=== PATIENT | female | born 2000 | race Caucasian/White ===

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

== ENCOUNTER → 2023-02-28 09:16 | Outpatient (CLI) | payer OTHER, SELFPAY ==
[2023-02-28 11:49] LABS: Hematocrit 37.9 % (36-46); Hemoglobin 12.7 g/dL (12.0-16.0); Mean Corpuscular HGB Conc 33.6 % (30-36); Mean Corpuscular Volume 83.5 fL (80-100); Platelet Count 271 X10^3/uL (150-400); Red Blood Cell Count 4.54 X10^6/uL (4.0-5.2); Red Cell Distribution Width 14.7 % (11.6-14.8); White Blood Cell Count 9.1 X10^3/uL (4.5-11.0)
[2023-02-28 12:39] LABS: Free T4, Direct Thyroxine 0.99 ng/dL (0.78-2.19)
[2023-02-28 12:40] LABS: Alanine Aminotransferase 15 IU/L (<35); Albumin 4.3 g/dL (3.5-5.0); Albumin Globulin Ratio 1.5 (1.0-2.8); Alkaline Phosphatase 59 U/L (38-126); Aspartate Aminotransferase 24 IU/L (14-36); BUN Creatinine Ratio 25.4 (6-22); Bilirubin Total 0.4 mg/dL (0.2-1.3); Blood Urea Nitrogen 18 mg/dL (7-17); Calcium 9.4 mg/dL (8.4-10.2); Carbon Dioxide 28 mmol/L (22-32); Chloride 102 mmol/L (98-107); Cholesterol 196 mg/dL (140-199); Estimated Glomerular Filt Rate > 60 mL/min (>60); Globulin 2.9 g/dL (1.7-4.1); Glucose 79 mg/dL (70-100); HDL Cholesterol 69 mg/dL (40-60); HEMOLYSIS < 15 (0-50); LDL Cholesterol Calculated 115 mg/dL (<100); Potassium 4.4 mmol/L (3.4-5.1); Sodium 137 mmol/L (137-145); Total Protein 7.2 g/dL (6.3-8.2); Triglycerides 60 mg/dL (35-150)
[2023-02-28 12:41] LABS: HCG Quantitative /Beta subunit < 2.4 mIU/mL; Prolactin 13.7 ng/mL (3.0-18.6)
[2023-02-28 12:52] LABS: Thyroid Stimulating Hormone 2.43 uIU/mL (0.47-4.68)
[2023-02-28 12:58] LABS: Testosterone 33.3 ng/dL (5.71-77.0)
[2023-02-28 15:36] LABS: Follicle Stimulating Hormone 5.58 mIU/mL
[2023-02-28 15:37] LABS: Vitamin D 25 Hydroxy (D3) 37.7 ng/mL (30.0-100.0)
== END ==
PROVIDERS: PCP Registered Nurse Diabetes Educator; Referring Provider Registered Nurse Diabetes Educator; Visit Provider Registered Nurse Diabetes Educator
DX: L68.0 Hirsutism (principal); N91.5 Oligomenorrhea, unspecified; Z00.00 Encounter for general adult medical examination without abnormal findings; R45.89 Other symptoms and signs involving emotional state
CPT/HCPCS: 36415; 80053; 80061; 82306; 83001; 83498; 84146; 84403; 84439; 84443; 84702; 85027

== ENCOUNTER → 2023-04-05 06:56 | Outpatient (CLI) | payer OTHER, SELFPAY ==
--- NOTE | 2023-04-05 06:57 | DI.US.S_ITS ---
PROCEDURE: US PELVIC COMPLETE INDICATIONS: HIRSUTISM LONG MENSTRUAL CYCLES ? PCOS TECHNIQUE: Real-time scanning was performed of the pelvic organs, with image documentation. Additional endovaginal scanning was necessary due to incomplete visualization of the adnexal and endometrial structures by transabdominal scanning. COMPARISON: None. FINDINGS: Uterus: Uterus is anteverted and normal in size at 6.5 x 3.3 x 4.4 cm. The myometrium is homogeneous. The endometrium measures 7.7 mm combined thickness. Ovaries: The right ovary measures 2.9 x 1.6 x 1.8 cm, with a calculated ovarian volume of 4.6 cc. The left ovary measures 3.0 x 1.8 x 2.6 cm, with a calculated ovarian volume of 7.3 cc. The ovaries have a normal sonographic appearance. Greater than 12 follicles can be seen in each ovary. No adnexal masses are seen. Other: No pathologic free abdominal or pelvic fluid. Trace pelvic free fluid, likely physiologic. IMPRESSION: Greater than 12 follicles can be seen in each ovary which can be seen in the setting of polycystic ovarian syndrome, clinical correlation is recommended. We strive to produce accurate, complete, and clear reports of imaging services. To assist us in improving patient care, this report was composed using standard report templates and voice recognition software. Therefore, it may contain abnormal punctuation, insertions and/or omissions. Occasional wrong-word or sound-alike substitutions may occur. Though we review the report and make efforts to correct it, we do recommend that the report be read carefully in proper context to recognize any text inaccuracies. Dictated by: Michael Bravo M.D. on 04/05/2023 at 9:02 Approved by: Michael Bravo M.D. on 04/05/2023 at 9:04
--- NOTE | 2023-04-05 06:57 | DI.ECHO.S_ITS ---
[facility]---------+ [facility] +---------+ : : [address] : [place] : : : : [id number] : : : : Phone: [phone]---------+ Echocardiogram Report + + :Name: ROGER LANGLEY Study Date: 04/05/2023 Height: 70 in : :[facility] ReadingLocation: Weight: 200 lb : : Gender: Female BSA: 2.1 m2 : :: 2000 Age: 22 yrs BP: 120/73 mmHg: :Reason For Study: Pre-Syncope, Evaluate for PCOS : :Ordering Physician: BREANNA, : :ROGER Performed By: Mirian Haq : :Referring: ROGER CARLOS : + + Interpretation Summary The ejection fraction is estimated to be 50-55%. In the parasternal views there appears to be an echo lucency in the proximal aorta. This is likely artifactual however supravalvular aortic stenosis cannot be ruled out. There is no significant valvular heart disease. Procedure: A two-dimensional transthoracic echocardiogram with color flow and Doppler was performed. The study quality was technically adequate. There is no prior echocardiogram noted for this patient. The patient was in a bradycardic rhythm during the exam. Left Ventricle: The left ventricle is normal in size. The ejection fraction is estimated to be 50-55%. Left ventricular wall motion is normal. Diastolic parameters suggest probable normal left ventricular diastolic function and normal filling pressures. Right Ventricle: The right ventricle is normal in size and function. Atria: The left atrial size is normal. Right atrial size is normal. There is no Doppler evidence for an interatrial shunt. Mitral Valve: The mitral valve leaflets appear mildly thickened, but open well. There is no mitral valve stenosis. There is trace mitral regurgitation. Aortic Valve: The aortic valve is trileaflet. The aortic valve opens well. There is no aortic valve stenosis. No aortic regurgitation is present. Tricuspid Valve: The tricuspid valve is normal. There is no tricuspid stenosis. There is trace tricuspid regurgitation. The right ventricular systolic pressure is estimated to be at least 23 mmHg based on an estimated right atrial pressure of 3 mm Hg. Pulmonic Valve: The pulmonic valve leaflets are thin and pliable; valve motion is normal. There is no pulmonic valvular stenosis. There is mild pulmonic regurgitation. Great Vessels: The aortic root is normal size. The ascending aorta is normal in size. The pulmonary artery is normal size. The IVC is of normal diameter and collapses greater than 50% with a sniff. This suggests a low right atrial pressure of 3 mm Hg. Pericardium/ Pleura There is no pericardial effusion. There is no pleural effusion. MMode/2D Measurements & Calculations LVIDd: 5.4 cm LVOT diam: 2.0 cm LVIDs: 3.4 cm Ao root diam: 2.7 cm FS: 37.0 % asc Aorta Diam: 2.6 cm IVSd: 0.80 cm LVPWd: 0.80 cm LV jimenez. diameter/BSA (cm/m^2): 2.6 LV sys. diameter/BSA (cm/m^2): 1.6 LA A2 area: 17.3 cm2 RA long axis: 5.0 cm LA A4 area: 16.1 cm2 RA area: 12.4 cm2 LA length (vol): 5.2 cm RA vol: 26.3 ml LA vol: 45.9 ml RA : 12.6 ml/m2 LA vol index: 22.0 ml/m2 RVD1 (basal): 3.7 cm LVLs ap4: 6.1 cm LVLd ap2: 8.5 cm TAPSE_phl: 2.4 cm LVLs ap2: 6.9 cm Doppler Measurements & Calculations Ao V2 max: 142.0 cm/sec LVOT Max Westley: 115.5 cm/sec Ao V2 mean: 90.2 cm/sec LV V1 max P.3 mmHg Ao max P.0 mmHg LV V1 VTI: 26.1 cm Ao mean P.0 mmHg UCHE(I,D): 2.1 cm2 Ao V2 VTI: 38.9 cm UCHE(V,D): 2.6 cm2 sev ratio: 0.67 UCHE indexed to BSA (cm^2/m^2): 1.0 MV E max westley: 88.9 cm/sec TR max westley: 222.0 cm/sec MV A max westley: 55.7 cm/sec TR max P.7 mmHg MV E/A: 1.6 PA V2 max: 112.0 cm/sec Med Peak E' Westley: 9.6 cm/sec PA V2 mean: 73.6 cm/sec E/E' med: 9.2 PA mean P.0 mmHg Lat Peak E' Westley: 18.2 cm/sec PA pr(Accel): 23.2 mmHg E/E' lat: 4.9 E/e' average: 7.1 MV dec time: 0.22 sec SV(LVOT): 82.0 ml AV VR_phl: 0.82 UCHE(VTI)/BSA_phl: 1.0 Reading Physician:02:10 PM
== END ==
PROVIDERS: PCP Registered Nurse Diabetes Educator; Referring Provider Registered Nurse Diabetes Educator; Visit Provider Registered Nurse Diabetes Educator
DX: I37.1 Nonrheumatic pulmonary valve insufficiency (principal); R55 Syncope and collapse; R06.09 Other forms of dyspnea; N91.5 Oligomenorrhea, unspecified; L68.0 Hirsutism
CPT/HCPCS: 76830; 76856; 93306; 93975

== ENCOUNTER → 2023-06-06 12:25 | Outpatient (CLI) | payer OTHER, SELFPAY ==
--- NOTE | 2023-06-06 12:27 | DI.RAD.S_ITS ---
PROCEDURE: XR SHOULDER RT MIN 2V INDICATIONS: chronic right shoulder pain TECHNIQUE: 3 views of the shoulder were acquired. COMPARISON: None. FINDINGS: Bones: No fractures or dislocations. No suspicious bony lesions. Visualized ribs appear intact. Soft tissues: No suspicious soft tissue calcifications. IMPRESSION: No fracture. No osseous lesion. If symptoms and/or clinical suspicion for pathology persists, further assessment with repeat radiographs (7-10 days) or advanced imaging (e.g. CT, MRI or bone scan) should be considered. Dictated by: Barbara Alberto MD, PhD on 06/06/2023 at 13:37 Approved by: Barbara Alberto MD, PhD on 06/06/2023 at 13:37
== END ==
PROVIDERS: PCP Registered Nurse Diabetes Educator; Referring Provider Registered Nurse Diabetes Educator; Visit Provider Registered Nurse Diabetes Educator
DX: M25.511 Pain in right shoulder (principal); G89.29 Other chronic pain; M75.21 Bicipital tendinitis, right shoulder
CPT/HCPCS: 73030

== ENCOUNTER → 2024-02-03 13:20 | Outpatient (CLI) | payer OTHER, SELFPAY ==
--- NOTE | 2024-02-03 13:21 | DI.RAD.S_ITS ---
PROCEDURE: FL SHOULDER INJECTION MR/CT RT INDICATIONS: RIGHT SHOULDER PAIN COMPARISON: [facility], MR, MR SHOULDER RT W CON, 02/03/2024, 14:05. TECHNIQUE: The indications, alternatives, benefits, risks, and complications of the procedure were explained to the patient. Written informed consent was obtained and placed in the chart. The shoulder was examined fluoroscopically and a site for needle placement chosen for entry into the glenohumeral joint from an anterior approach. The skin was prepped and draped in a sterile fashion, and 1% lidocaine infiltrated from skin down to joint capsule. A spinal needle was inserted into the glenohumeral joint, and a small amount of iodinated contrast media injected to confirm intra-articular placement of the needle tip. This was followed by approximately 12 mL dilute solution of a gadolinium containing MR contrast agent. The needle was removed and a dressing was applied. The patient was given postprocedural instructions and sent to the MR suite for MR imaging. FINDINGS: A single fluoroscopic spot image demonstrates intra-articular location of injected iodinated contrast. IMPRESSION: Successful fluoroscopically guided administration of dilute Gadolinium solution into the shoulder joint for MR arthrogram. Dictated by: Cielo Newberry M.D. on 02/03/2024 at 17:05 Approved by: Cielo Newberry M.D. on 02/03/2024 at 17:05
[2024-02-03] MEDS: SODIUM CHLORIDE 0.9 % 20 ML VIAL IV (14:28)
[2024-02-03] MEDS: LIDOCAINE 1% 20 ML INJ (14:28)
--- NOTE | 2024-02-03 14:30 | DI.MRI.S_ITS ---
PROCEDURE: MR SHOULDER RT W CON INDICATIONS: RIGHT SHOULDER PAIN TECHNIQUE: After the administration of 12 mL of dilute intra-articular Gadolinium contrast, oblique coronal T1 and T2 spin echo with fat saturation, oblique sagittal T1 spin echo with and without fat saturation, oblique sagittal T2 fast spin echo with fat saturation, axial T1 spin echo with fat saturation through the shoulder. COMPARISON: None. FINDINGS: Image quality: Excellent. Rotator cuff: Low-grade bursal surface partial-thickness tear involving distal supraspinatus at its insertion on the humeral head is seen extending to musculotendinous junction. Distal infraspinatus and subscapularis tendinosis is seen. No full-thickness rotator cuff tendon rupture. No rotator cuff muscle atrophy on sagittal images. Bones and bursae: No bone marrow contusions or fractures. No acromioclavicular joint degeneration. The acromion demonstrates conventional anatomy, without an os acromiale. Capsule and soft tissues: There is contrast extension and contour irregularity involving superior anterior labrum at 12 to 1 o'clock position suggestive of superior anterior labral tear. The glenohumeral ligaments appear intact. The long head of the biceps tendon demonstrates normal location and morphology. The rotator interval appears normal, without fibrosis. The coracohumeral ligament is of normal thickness. No intra-articular bodies. IMPRESSION: 1. Superior anterior right shoulder labral tear at 12 to 1 o'clock position. 2. Low-grade bursal surface partial-thickness tear involving distal supraspinatus extending to musculotendinous junction. Distal infraspinatus and subscapularis tendinosis. No full-thickness rotator cuff tendon rupture. 3. No marrow edema. No fracture or dislocation. No intra-articular loose bodies. Dictated by: Jacob Alex M.D. on 02/03/2024 at 15:13 Approved by: Jacob Alex M.D. on 02/03/2024 at 15:15
== END ==
PROVIDERS: PCP Registered Nurse Diabetes Educator; Referring Provider Orthopaedic Surgery; Visit Provider Orthopaedic Surgery
DX: M75.111 Incomplete rotator cuff tear or rupture of right shoulder, not specified as traumatic (principal); S43.491A Other sprain of right shoulder joint, initial encounter; M25.511 Pain in right shoulder
CPT/HCPCS: 23350; 73040; 73222; A9579; Q9967

== ENCOUNTER → 2024-12-01 09:17 | Outpatient (CLI) | payer OTHER, SELFPAY ==
--- NOTE | 2024-12-01 09:18 | DI.RAD.S_ITS ---
PROCEDURE: XR ANKLE LT MIN 3V INDICATIONS: left ankle injury TECHNIQUE: 3 views of the ankle were acquired. COMPARISON: None. FINDINGS: Bones: No fractures or dislocations. Ankle mortise is normally aligned. No suspicious bony lesions. Soft tissues: Significant soft tissue swelling over lateral malleolus is seen. Achilles tendon is intact. Small to moderate tibiotalar joint effusion is noted. IMPRESSION: No acute ankle fracture or dislocation. Lateral ankle soft tissue swelling and tibiotalar joint effusion. If clinically in warranted, MRI of ankle can be done for further evaluation of internal derangement. Dictated by: Jacob Alex M.D. on 12/01/2024 at 9:56 Approved by: Jacob Alex M.D. on 12/01/2024 at 9:56
== END ==
PROVIDERS: PCP Registered Nurse Diabetes Educator; Referring Provider Family Medicine; Visit Provider Family Medicine
DX: S93.402A Sprain of unspecified ligament of left ankle, initial encounter (principal); M25.472 Effusion, left ankle; X58.XXXA Exposure to other specified factors, initial encounter
CPT/HCPCS: 73610